=== PATIENT | female | born 2005 | race Caucasian/White ===

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

== ENCOUNTER 2023-05-21 17:54 | Emergency (ER) | payer BC ==
[2023-05-21] MEDS ORDERED: Sodium Chloride 0.9% 1,000 ML IV STA ×2 (18:29→19:14)
[2023-05-21] MEDS ORDERED: Sodium Chloride 0.9% 10 ML Syringe FLUSH PRN (18:29)
[2023-05-21] MEDS ORDERED: Sodium Chloride 0.9% 2.5 ML Syringe FLUSH PRN (18:29)
[2023-05-21 19:04] LABS: APPEARANCE,URINE CLEAR; BILIRUBIN,URINE NEGATIVE (NEGATIVE); COLOR,URINE YELLOW; GLUCOSE,URINE NEGATIVE (NEGATIVE); KETONES,URINE 15 mg/dL (NEGATIVE); LEUKOCYTE ESTERASE,URINE NEGATIVE (NEGATIVE); NITRITE,URINE NEGATIVE (NEGATIVE); OCCULT BLOOD,URINE NEGATIVE (NEGATIVE); PH,URINE 8.5 (5.0-8.0); PROTEIN,URINE NEGATIVE (NEGATIVE); UROBILINOGEN,URINE 0.2 EU/dL (<2.0)
[2023-05-21 19:10] LABS: BASOPHILS ABSOLUTE AUTO 0.02 K/uL (0.00-0.20); BASOPHILS PERCENT AUTO 0.1 % (0.0-1.0); HEMATOCRIT 36.2 % (37.0-47.0); HEMOGLOBIN 12.7 g/dL (12.0-16.0); IMMATURE GRAN ABSOLUTE AUTO 0.03 K/uL (0.00-0.05); IMMATURE GRAN PERCENT AUTO 0.2 % (0.0-0.4); LYMPHOCYTES ABSOLUTE AUTO 0.68 K/uL (1.00-4.80); LYMPHOCYTES PERCENT AUTO 3.9 % (24.0-44.0); MEAN CORPUSCULAR HEMOGLOBIN 30.1 pg (28.0-32.0); MEAN CORPUSCULAR HGB CONC 35.1 g/dL (32.0-36.0); MEAN CORPUSCULAR VOLUME 85.8 fL (83.0-99.0); MEAN PLATELET VOLUME 11.4 fL (9.4-12.3); MONOCYTES PERCENT AUTO 1.7 % (0.0-8.0); NEUTROPHILS ABSOLUTE AUTO 16.23 K/uL (1.80-7.70); NEUTROPHILS PERCENT AUTO 94.1 % (41.0-71.0); PLATELET COUNT,PLT 233 K/uL (150-400); RED BLOOD CELL COUNT 4.22 M/uL (4.10-5.30); WHITE BLOOD CELL COUNT,WBC 17.26 K/uL (3.9-11.3)
[2023-05-21 19:32] LABS: A/G RATIO 1.3 (0.9-1.6); ALANINE AMINOTRANSFERASE,ALT 14 IU/L (14-63); ALKALINE PHOSPHATASE 32 U/L (46-116); ASPARTATE AMNIOTRANSFERASE,AST 12 IU/L (15-37); BILIRUBIN TOTAL 0.4 mg/dL (0.2-1.0); BLOOD UREA NITROGEN,BUN 9 mg/dL (7.0-18.0); CALCIUM 9.7 mg/dL (8.5-10.1); CARBON DIOXIDE,CO2 24.4 mmol/L (21.0-32.0); CHLORIDE,CL 101 mmol/L (98-107); CREATININE 0.8 mg/dL (0.6-1.0); GLUCOSE RANDOM 102 mg/dL (74-106); LIPASE 18 U/L (16-77); PROTEIN TOTAL,TP 8.8 g/dL (6.4-8.2); SODIUM,NA 139 mmol/L (136-145)
[2023-05-21 19:35] LABS: ESTIMATED GFR 108 mL/min (>60)
[2023-05-21] MEDS ORDERED: Ondansetron 4 MG/2 ML SDV IVPUSH STA (20:35)
== END 2023-05-21 20:56 | disposition home or self-care (01) ==
LOC: MW.ED 17:54
DX: E86.0 Dehydration (principal); Z86.16 Personal history of COVID-19; Z79.899 Other long term (current) drug therapy
CPT/HCPCS: 36415; 80053; 81003; 81025; 83690; 85025; 96361; 96374; 99284; J2405; J3490; J7030

== ENCOUNTER 2024-03-08 09:17 | Emergency (ER) | payer BC ==
[2024-03-08] MEDS: Benzocaine 20% Topical Spray UD MUCMEM ONE (10:12)
[2024-03-08] MEDS: Lidocaine 2% Viscous Solution 15 ML UD PO ONE (10:12)
[2024-03-08] MEDS: Dexamethasone 4 MG/ML SDV IM ONE (10:13)
[2024-03-08] MEDS: Promethazine 25 MG/ML SDV IM ONE (10:13)
== END 2024-03-08 10:37 | disposition home or self-care (01) ==
LOC: MW.ED 09:17
DX: K08.89 Other specified disorders of teeth and supporting structures (principal); R22.0 Localized swelling, mass and lump, head; R11.15 Cyclical vomiting syndrome unrelated to migraine; K08.409 Partial loss of teeth, unspecified cause, unspecified class; Z79.899 Other long term (current) drug therapy; Z91.040 Latex allergy status; Z75.8 Other problems related to medical facilities and other health care
CPT/HCPCS: 96372; 99283; A9270; J1100; J2550

== ENCOUNTER 2025-04-09 10:21 | Day surgery (SDC) | payer BC ==
[2025-04-09] MEDS: Lactated Ringers 1,000 ML IV SCH (10:45)
[2025-04-09] MEDS ORDERED: Ondansetron 4 MG/2 ML SDV ONE (11:23)
[2025-04-09] MEDS ORDERED: propofoL 500 MG/50 ML 50 ML ONE (11:23)
[2025-04-09] MEDS ORDERED: Ondansetron 4 MG/2 ML SDV IVPUSH PRN (12:04)
[2025-04-09] MEDS ORDERED: Scopalamine 1mg/3day Transdermal Patch TOP ONE (12:06)
[2025-04-09] MEDS: Ondansetron 4 MG/2 ML SDV ONE (12:10)
== END 2025-04-09 12:55 | disposition home or self-care (01) ==
LOC: MW.SDS 10:21
PROVIDERS: ATTEND Surgery
DX: Z12.11 Encounter for screening for malignant neoplasm of colon (principal); R11.0 Nausea; E11.9 Type 2 diabetes mellitus without complications; F17.210 Nicotine dependence, cigarettes, uncomplicated; Z79.899 Other long term (current) drug therapy; Z86.0100 Personal history of colon polyps, unspecified; Z91.040 Latex allergy status
CPT/HCPCS: 36415; 43239; 45378; 84703; J1171; J2405; J2704; J7120; 00813